=== PATIENT | female | born 2000 | race Caucasian/White ===

== ENCOUNTER 2020-09-02 07:40 | Outpatient (CLI) | payer BC ==
--- NOTE | 2020-09-02 08:50 | MRI ---
MRI LUMBAR SPINE NONCONTRAST: DATE: 09/02/2020 HISTORY: 20-year-old female with low back pain M 54.5 COMPARISON: None available FINDINGS: Included only on the sagittal images, at T10-11, there is a small central disc protrusion, Schmorl's nodes, disc desiccation, and disc space narrowing. The disc protrusion does not contact the spinal cord and does not cause high-grade central spinal canal stenosis. Included only on sagittal images, at T11-12, there are also mild discogenic degenerative changes incl uding a very small disc protrusion. No central stenosis. No neural foraminal stenosis. For the purposes of this report, it will be assumed that there are 5 lumbar-type vertebrae. Vertebral body heights are maintained. The following description only applies to the lumbar spine proper: Bone marrow signal is normal. No major spondylolisthesis. No high-grade discogenic degenerative quinonez es at any level. Conus medullaris terminates at L1. Cauda equina is arranged in a symmetrical, normal distribution throughout the thecal sac. No strategic focal disc herniation, and no nerve root impingement, is identified at any level. There are bilateral pedicle screws at L4 causing magnetic susceptibility artifact, distorting the kike ges. There is magnetic susceptibility artifact around the spinous processes of L4 and L5 representing another metallic device there. Perivertebral spaces appear normal. The magnetic susceptibility artifact makes it difficult to evaluate the facet joints of L3-4. There is no high-grade facet DJD at other levels.. IMPRESSION: 1) posterior element fusion with bilateral pedicle screws at L4. 2) interspinous process device at L4-5. 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
--- NOTE | 2020-09-02 09:56 | CT ---
CT LUMBAR SPINE WITHOUT CONTRAST: HISTORY: Low back pain. COMPARISON: None. FINDINGS: Five lumbar-type vertebrae. Lumbar spine vertebral body height is maintained. No fracture. There are bilateral transpedicular screws at L4 with associated vertical stabilization rods. The inferior aspect of these rods appear to 2 separate cortex into the inferior aspect of the left or right facet at l4. No evidence of perihardware lucency. No abnormal attenuation of the visualized paraspinal muscles, solid organs and element canal. Limited evaluation of the contents of the central spinal canal and neural foramina due to technique. Refer to MRI performed just prior to this exam for further detail. IMPRESSION: Fusion hardware at L4 without evidence of perihardware lucency. Transcribed Date/Time: 09/02/2020 10:45 AM
== END 2020-09-02 07:41 | disposition home or self-care (01) ==
LOC: MRI 07:40
PROVIDERS: ATTEND Orthopaedic Surgery
DX: M54.5 Low back pain (principal); M51.34 Other intervertebral disc degeneration, thoracic region; Z98.1 Arthrodesis status
CPT/HCPCS: 72131; 72148